=== PATIENT | male | born 1975 | race Caucasian/White ===

== ENCOUNTER 2016-10-13 16:54 | Emergency (ER) | payer MEDICAID ==
[~2016-10-13] VITALS: Ht 177.8 cm; Wt 77.1 kg
[2016-10-13 17:00] VITALS: BP 143/98
--- NOTE | 2016-10-13 17:06 | NUR ---
PATIENT TO BED 3 AT THIS TIME.
--- NOTE | 2016-10-13 17:12 | NUR ---
41M BIB FAMILY C/O HIGH BLOOD PRESSURE X 2 HOURS AGO TODAY; PT C/O POSTERIOR HEADACHE, RADIATES TO ANTERIOR HEAD, 09/18 AT THIS TIME; PT STATES NO TRAUMA OR INJURY TO HEAD AT THIS TIME; PT AA&OX4, PERRLA, BL LUNG SOUNDS CLEAR, RR EVEN/UNLABORED, SKIN IS WARM/DRY/INTACT AT THIS TIME; PT C/O NAUSEA, BUT STATES NO VOMITING/DIARRHEA AT THIS TIME; ABDOMEN SOFT, NON-TENDER, ACTIVE BOWEL SOUNDS X 4 QUADRANTS; PT RESTING IN BED WITH HOB ELEVATED AND IN LOWEST POSITION; POSITIONED FOR COMFORT; ER MD MADE AWARE OF STATUS. WILL CONTINUE TO MONITOR. Addendum: 10/13/16 at 1717 by [employer] PT STATES HAS HX OF HTN, BUT DOES NOT TAKE MEDICATION AT THIS TIME.
--- NOTE | 2016-10-13 17:16 | NUR ---
ER MD DR. GONZALEZ EVALUATING PT AT THIS TIME.
[2016-10-13 17:50] VITALS: BP 148/98
--- NOTE | 2016-10-13 17:50 | NUR ---
Patient discharged with v/s stable. Written and verbal after care instructions given and explained. Patient alert, oriented and verbalized understanding of instructions. Carried with steady gait. All questions addressed prior to discharge. ID band removed. Patient advised to follow up with PMD. Rx of LISINOPRIL 10MG, [id number] AND VENTOLIN HFA 90MCG/ACTUATION INHALATION AEROSOL given. Patient educated on indication of medication including possible reaction and side effects. Opportunity to ask questions provided and answered.
== END 2016-10-13 17:50 | disposition home or self-care (01) ==
LOC: MED 16:54
DX: I10 Essential (primary) hypertension (principal); J44.9 Chronic obstructive pulmonary disease, unspecified; G44.209 Tension-type headache, unspecified, not intractable; Z88.0 Allergy status to penicillin; F17.210 Nicotine dependence, cigarettes, uncomplicated; Z71.6 Tobacco abuse counseling
CPT/HCPCS: 99283

== ENCOUNTER 2017-02-25 14:11 | Emergency (ER) | payer MEDICAID ==
[~2017-02-25] VITALS: Ht 180.3 cm; Wt 77.1 kg
[2017-02-25 14:30] VITALS: BP 155/91
--- NOTE | 2017-02-25 14:32 | NUR ---
PT SENT TO LOBBY TO WAIT FOR X-RAY AND A BED.
--- NOTE | 2017-02-25 15:45 | NUR ---
PATIENT TAKEN TO OF 2
--- NOTE | 2017-02-25 16:11 | NUR ---
PATIENT PRESENTS TO ED WITH C/O RIGHT ELBOW PAIN X2 AND 1/2 WEEKS, NO INJURY DENIES TRAUMA; C/O PAIN WITH WIGGLING FINGERS AND NUMBNESS TO RIGHT FINGERS HX HTN; DENIES N/V/D; SKIN IS PINK/WARM/DRY; AAOX4 WITH EVEN AND STEADY GAIT; LUNGS CLEAR BL; HR EVEN AND REGULAR; PT DENIES ANY FEVER, CP, SOB, OR COUGH AT THIS TIME; PATIENT STATES PAIN OF 10/10 AT THIS TIME; VSS; PATIENT POSITIONED FOR COMFORT; ER MD MADE AWARE OF PT STATUS.
[2017-02-25 16:36] VITALS: BP 144/88
== END 2017-02-25 16:36 | disposition home or self-care (01) ==
LOC: MED 14:11
DX: M77.11 Lateral epicondylitis, right elbow (principal); F17.210 Nicotine dependence, cigarettes, uncomplicated; Z71.6 Tobacco abuse counseling; I10 Essential (primary) hypertension; Z88.0 Allergy status to penicillin
CPT/HCPCS: 73080; 99284

== ENCOUNTER 2018-07-08 19:23 | Emergency (ER) | payer MEDICAID ==
[~2018-07-08] VITALS: Ht 180.3 cm; Wt 85.7 kg
[2018-07-08 19:35] VITALS: BP 165/106
--- NOTE | 2018-07-08 19:37 | NUR ---
PT AMBULATED TO BED 12.
--- NOTE | 2018-07-08 19:40 | NUR ---
ASSUMED CARE OF PT AT THIS TIME. C/O ELEVATED BP AND CHEST TIGHTNESS W/ MILD SOB. NO RESPIRATORY DISTRESS NOTED...PT SPEAKS IN FULL SENTENCES. AAOX4 WITH EVEN AND STEADY GAIT; PATIENT STATES PAIN OF 9/10; VSS; PATIENT POSITIONED FOR COMFORT; HOB ELEVATED; BEDRAILS UP X2; BED DOWN. ER MD MADE AWARE OF PT STATUS. WILL CONTINUE TO MONITOR.
[2018-07-08] MEDS ORDERED: cloNIDine 0.1 MG TAB PO ONE (19:55)
--- NOTE | 2018-07-08 19:58 | NUR ---
PT TAKEN TO CT VIA WHEELCHAIR
[2018-07-08 20:02] LABS: BASOPHILS # (AUTO) 0.1 K/uL (0.00-0.22); BASOPHILS % (AUTO) 2.3 % (0.0-2.0); EOSINOPHILS # (AUTO) 0.1 K/uL (0-0.4); EOSINOPHILS % (AUTO) 1.3 % (0.0-4.0); HEMATOCRIT 58.4 % (36-52); HEMOGLOBIN 19.5 g/dL (12.0-18.0); LYMPHOCYTES # (AUTO) 0.9 K/uL (2.0-11.5); LYMPHOCYTES % (AUTO) 15.9 % (20.5-51.1); MEAN CORPUSCULAR HEMOGLOBIN 30 pg (27-31); MEAN CORPUSCULAR HGB CONC 34 g/dL (33-37); MEAN CORPUSCULAR VOLUME 89.3 fL (80-94); MONOCYTES # (AUTO) 0.5 K/uL (0.8-1.0); MONOCYTES % (AUTO) 9.2 % (1.7-9.3); NEUTROPHILS # (AUTO) 3.9 K/uL (1.8-7.7); NEUTROPHILS % (AUTO) 71.3 % (42.2-75.2); PLATELET COUNT (AUTO) 126 K/uL (140-450); RED BLOOD CELL COUNT(AUTO) 6.54 MIL/uL (4.20-6.10); RED CELL DISTRIBUTION WIDTH 13.5 % (11.6-13.7); WHITE BLOOD COUNT (AUTO) 5.5 K/uL (4.8-10.8)
--- NOTE | 2018-07-08 20:07 | NUR ---
PT RETURNED FROM CT
[2018-07-08 20:22] LABS: ANION GAP 9.4 (8-16); CARBON DIOXIDE 31.4 mmol/L (21-32); CREATININE 1.3 mg/dL (0.7-1.3); POTASSIUM 3.8 mmol/L (3.5-5.1)
[2018-07-08 20:29] LABS: ALBUMIN 3.7 g/dL (3.4-5.0); TOTAL BILIRUBIN 1.1 mg/dL (0.0-1.0)
[2018-07-08 21:00] VITALS: BP 132/84
--- NOTE | 2018-07-08 21:00 | NUR ---
Patient discharged with v/s stable. Written and verbal after care instructions given and explained. Patient alert, oriented and verbalized understanding of instructions. Ambulatory with steady gait. All questions addressed prior to discharge. ID band removed. Patient advised to follow up with PMD. Rx of CLONIDINE AND LISINOPRIL given. Patient educated on indication of medication including possible reaction and side effects. Opportunity to ask questions provided and answered.
== END 2018-07-08 21:00 | disposition home or self-care (01) ==
LOC: MED 19:23
DX: I10 Essential (primary) hypertension (principal); E86.0 Dehydration; Z88.0 Allergy status to penicillin
CPT/HCPCS: 36415; 70450; 71045; 80053; 84484; 85025; 93005; 99284; Q0092

== ENCOUNTER 2019-09-14 17:18 | Emergency (ER) | payer MEDICAID, OTHER ==
[~2019-09-14] VITALS: Ht 180.3 cm; Wt 86.2 kg
[2019-09-14 17:28] VITALS: BP 166/98
--- NOTE | 2019-09-14 17:30 | NUR ---
PT AMB TO BED4.
--- NOTE | 2019-09-14 18:05 | NUR ---
44 Y/O MALE C/O RIGHT KNEE SWELLING S/P INSECT BITE. PT DOES NOT KNOW WHAT BIT HIM, BUT PT SAW BITE ON HIS RIGHT KNEE AND NOTICED SWELLING 2 HOURS LATER. MODERATE SWELLING NOTED, PAIN IS 8/10 BURNING PAIN. PT STATES HE HAD 2 EPISODES OF EMESIS, HE BELIEVES D/T ANXIETY. NO CHILLS/NAUSEA/ WEAKNESS AT THIS TIME. AAOX4. AMBULATORY WITH STEADY GAIT PMH:HTN
[2019-09-14] MEDS ORDERED: ACETAMINOPHEN EXTRA STRENGTH 500 MG TAB PO ONE (19:00)
[2019-09-14 19:11] VITALS: BP 166/98
== END 2019-09-14 19:12 | disposition home or self-care (01) ==
LOC: MED 17:18
DX: M71.161 Other infective bursitis, right knee (principal); I10 Essential (primary) hypertension; K75.9 Inflammatory liver disease, unspecified; Z88.0 Allergy status to penicillin
CPT/HCPCS: 73562; 99283

== ENCOUNTER 2020-05-10 12:40 | Emergency (ER) | payer OTHER ==
[~2020-05-10] VITALS: Ht 180.3 cm; Wt 86.2 kg
[2020-05-10 12:46] VITALS: BP 167/119
--- NOTE | 2020-05-10 12:50 | NUR ---
44 YO M BIB SELF FOR C/C OF 7/10 ROBLES, DIZZINESS, BLURRY VISION, NAUSEA NO VOMITING SECONDARY TO HTN. PT STATES THAT HE HAS NOT TAKEN HIS LISINOPRIL (UNKNOWN MG) FOR OVER A MONTH DUE TO NOT HAVING A PCP TO REFILL RX. PT DENIES SOB/CHEST PAIN AT THIS TIME. PT ALSO STATES THAT HE FEELS LIKE HE "CANT THINK CLEARLY." PT DENIES OTC MEDS FOR PAIN. BED LOCKED AND IN LOWEST POSITON. SIDE RAILS X1. MED HX: HTN, HEP C
--- NOTE | 2020-05-10 13:08 | NUR ---
EKG AT BEDSIDE
--- NOTE | 2020-05-10 13:11 | NUR ---
LAB AT BEDSIDE
[2020-05-10 13:22] LABS: BASOPHILS # (AUTO) 0.1 K/uL (0.00-0.22); EOSINOPHILS # (AUTO) 0.2 K/uL (0-0.4); HEMATOCRIT 54.2 % (36-52); HEMOGLOBIN 18.4 g/dL (12.0-18.0); LYMPHOCYTES % (AUTO) 32.5 % (20.5-51.1); MEAN CORPUSCULAR HEMOGLOBIN 30 pg (27-31); MEAN CORPUSCULAR HGB CONC 34 g/dL (33-37); MEAN CORPUSCULAR VOLUME 88.3 fL (80-94); MONOCYTES # (AUTO) 0.6 K/uL (0.8-1.0); MONOCYTES % (AUTO) 9.1 % (1.7-9.3); NEUTROPHILS # (AUTO) 3.2 K/uL (1.8-7.7); NEUTROPHILS % (AUTO) 53.4 % (42.2-75.2); PLATELET COUNT (AUTO) 153 K/uL (140-450); RED BLOOD CELL COUNT(AUTO) 6.14 MIL/uL (4.20-6.10); RED CELL DISTRIBUTION WIDTH 13.9 % (11.6-13.7)
[2020-05-10 13:29] LABS: ANION GAP 8.7 (8-16); CARBON DIOXIDE 30.2 mmol/L (21-32); POTASSIUM 3.9 mmol/L (3.5-5.1)
[2020-05-10 13:36] LABS: ALBUMIN 3.7 g/dL (3.4-5.0); TOTAL BILIRUBIN 0.9 mg/dL (0.0-1.0)
[2020-05-10] MEDS ORDERED: lisinopriL 20 MG TAB PO ONE (14:00)
[2020-05-10] MEDS ORDERED: NACL 0.9% 1,000 ML IV ONE (14:05)
[2020-05-10] MEDS ORDERED: LIDOCAINE MPF 1% 10 MG/ML VIAL INJ SCH (14:10)
--- NOTE | 2020-05-10 14:45 | NUR ---
PT STATES "I AM FEELING BETTER."
[2020-05-10] MEDS ORDERED: LISI10TA30 PO (14:54)
[2020-05-10 15:05] VITALS: BP 154/109
--- NOTE | 2020-05-10 15:05 | NUR ---
Patient discharged with v/s stable. Written and verbal after care instructions given and explained. Patient alert, oriented and verbalized understanding of instructions. Ambulatory with steady gait. All questions addressed prior to discharge. ID band removed. Patient advised to follow up with PMD. Rx of LISINOPRIL given. Patient educated on indication of medication including possible reaction and side effects. Opportunity to ask questions provided and answered.
== END 2020-05-10 15:05 | disposition home or self-care (01) ==
LOC: MED 12:40
DX: I10 Essential (primary) hypertension (principal); R51.9 Headache, unspecified; F17.210 Nicotine dependence, cigarettes, uncomplicated; Z88.0 Allergy status to penicillin; Z79.899 Other long term (current) drug therapy
CPT/HCPCS: 36415; 80053; 84484; 85025; 93005; 99284; J2001

== ENCOUNTER 2020-10-13 11:25 | Emergency (ER) | payer OTHER ==
[~2020-10-13] VITALS: Ht 180.3 cm; Wt 81.6 kg
[~2020-10-13 11:25] MED LIST: LISI10TA30 PO
[2020-10-13 12:14] VITALS: BP 156/99
--- NOTE | 2020-10-13 12:23 | NUR ---
45 Y/O MALE C/O LEFT THIGH & KNEE PAIN S/P FALL X 2 WEEKS. PT STATES CRUSHING 10/10 PAIN. SKIN WARM AND DRY. TENDER TO TOUCH. PMH: HTN,HEP C ALLERGIES: PENICILLINS
--- NOTE | 2020-10-13 12:32 | NUR ---
MEENAKSHI BERGERON AT BEDSIDE EXAMINING PT
[2020-10-13] MEDS ORDERED: KETOROLAC 30 MG/ML VIAL IM ONE (12:40)
--- NOTE | 2020-10-13 12:50 | NUR ---
PT TAKEN TO XRAY VIA GAYLA
--- NOTE | 2020-10-13 13:07 | NUR ---
PT RETURNED FROM XRAY
--- NOTE | 2020-10-13 14:04 | NUR ---
Patient appears to be resting in bed. Vital Signs within normal limits. Respirations even and unlabored.
[2020-10-13] MEDS ORDERED: NAPR-54 PO (14:16)
[2020-10-13] MEDS ORDERED: SULF-59 PO (14:16)
[2020-10-13 14:27] VITALS: BP 150/98
--- NOTE | 2020-10-13 14:27 | NUR ---
Patient discharged with v/s stable. Written and verbal after care instructions given and explained. Patient alert, oriented and verbalized understanding of instructions. Ambulatory with steady gait. All questions addressed prior to discharge. ID band removed. Patient advised to follow up with PMD. Rx of BACTRIM AND NAPROSYN given. Patient educated on indication of medication including possible reaction and side effects. Opportunity to ask questions provided and answered.
== END 2020-10-13 14:27 | disposition home or self-care (01) ==
LOC: MED 11:25
DX: M70.42 Prepatellar bursitis, left knee (principal); I10 Essential (primary) hypertension; Z88.0 Allergy status to penicillin; Z79.899 Other long term (current) drug therapy; Z86.19 Personal history of other infectious and parasitic diseases; Y93.89 Activity, other specified
CPT/HCPCS: 73502; 73562; 96372; 99284; J1885; Q0092

== ENCOUNTER 2020-10-24 19:26 | Emergency (ER) | payer OTHER ==
[~2020-10-24] VITALS: Ht 180.3 cm; Wt 83.9 kg
[~2020-10-24 19:26] MED LIST changes: +NAPR-54 PO; +SULF-59 PO
[2020-10-24 20:11] VITALS: BP 158/103
--- NOTE | 2020-10-24 20:20 | NUR ---
TO BED AMBULATORY
--- NOTE | 2020-10-24 20:25 | NUR ---
PT. IS A 45 Y/O MALE THAT CAME INTO ED WITH C/O OF LEFT KNEE PAIN. PT. STATES "A COUPLE OF WEEKS AGO I CAME IN HERE FOR CELLULITIS, AND IT STILL HAS NOT GOTTEN BETTER. TOLD ME TO COME BACK IF IT DOESN'T HEAL. I FINISHED MY ANTIBIOTICS." PT. RATES PAIN 6/10 ON THE PAIN SCALE AT THIS TIME. WHEN ASKED TO DESCRIBE PAIN, PT. STATES THAT IT IS LOCALIZED AT THE BACK OF HIS KNEE AND "THE PAIN COMES AND GOES WHEN I SIT TOO LONG." DENIES V/D, BUT ADMITS TO NAUSEA. SKIN IS PINK/WARM/DRY; AAOX4 WITH EVEN AND STEADY GAIT;HR EVEN AND REGULAR; PT DENIES ANY FEVER, CP, SOB, OR COUGH AT THIS TIME; VSS; PATIENT IS SITTING ON CHAIR AT THIS TIME. ER MD MADE AWARE OF PT STATUS. PMH: HEP. C, HYPERTENSION ALLERGIES: PCN
--- NOTE | 2020-10-24 21:10 | NUR ---
JANET DAS AT BEDSIDE
[2020-10-24] MEDS ORDERED: CLINDAMYCIN 150 MG CAP PO ONE (21:20)
[2020-10-24] MEDS ORDERED: KETOROLAC 60 MG/2 ML VIAL IM ONE (21:20)
[2020-10-24] MEDS ORDERED: IBUP-2213 PO (21:26)
[2020-10-24] MEDS ORDERED: CLIN300C52 PO (21:26)
--- NOTE | 2020-10-24 21:45 | NUR ---
PT. RECIEVING LUIS FELIPE WRAP AT THIS TIME.
[2020-10-24 21:49] VITALS: BP 158/103
--- NOTE | 2020-10-24 21:49 | NUR ---
Patient discharged with v/s stable. Written and verbal after care instructions given and explained. Patient alert, oriented and verbalized understanding of instructions. Ambulatory with steady gait. All questions addressed prior to discharge. ID band removed. Patient advised to follow up with PMD. Rx of CLINDAMYCIN AND IBUPROFEN given. Patient educated on indication of medication including possible reaction and side effects. Opportunity to ask questions provided and answered.
== END 2020-10-24 21:49 | disposition home or self-care (01) ==
LOC: MED 19:26
DX: L03.116 Cellulitis of left lower limb (principal); I10 Essential (primary) hypertension; F17.210 Nicotine dependence, cigarettes, uncomplicated; Z88.0 Allergy status to penicillin
CPT/HCPCS: 96372; 99283; J1885